=== PATIENT | female | born 1970 | race Hispanic/Latino ===

== ENCOUNTER 2016-10-11 07:09 | Day surgery (SDC) | payer OTHER ==
[~2016-10-11] VITALS: Ht 157.5 cm; Wt 66.0 kg
[~2016-10-11 07:09] MED LIST: 0.9% Sodium Chloride 1,000 ML IV SCH; OMEP20TA24 PO; Sodium Chloride LOK Flush 10 mL Syringe IV PRN; fentaNYL-PF 50 mCg/mL 2 mL Inj IVPUSH PRN
[2016-10-11 07:40] VITALS: BP 104/56; PULSE 65; RESP 14; O2SAT 100
--- NOTE | 2016-10-11 08:16 | PCM.ENDEGD ---
EGD Date of Service: Oct 11, 2016 Physician Jose Kowalski MD Indication for Procedure Reflux Post Procedure Dx & Findings: LA grade D esophagitis Procedure Esophagogastroduodenoscopy PROCEDURE IN DETAIL: The patient was placed in left lateral decubitus position. Bite block was placed. Scope lubricated, placed in posterior pharynx, passed through the cricopharyngeus and esophagus, slowly advanced the entire length of the gastric pouch, pylorus was identified, scope passed through the pylorus and descending portion of duodenum, withdrawn in the antrum, retroflexed upon itself for view of fundus and cardia. Scope was then withdrawn through the oropharynx. Esophagus normal until we got to the Z line which was about 33 cm from the incisors. Inflammation and clean base ulcerations noted. There were 3 ulcerations and the largest one was about 1.5 cm. Several biopsy done using cold forceps. Stomach showed normal mucosa without any ulcers masses erosions. Retroflexion was done. Stomach was easily inflatable and deflated abusing air. Cardia fundus body antrum and pylorus were all visualized. Scope further events the duodenum which showed normal villous structures with normal folds. We advanced to the distal duodenum. Impression LA grade D esophagitis and ulcers Recommendation 1Antireflux diet and lifestyle 2Prilosec 20 mg once a day. She should be on PPI indefinitely. If she does not want to be on PPI indefinitely, she is to see a surgeon for Iesha. I will defer this referral to the primary care physician. 3Return to clinic if Prilosec does not resolved as her symptoms. Presedation Assessment Risks and Benefits Informed consent was obtained from the patient after all risks and benefits including but not limited to drug reaction, infection, pain, bleeding, perforation, as well as alternatives were discussed. Patient monitoring Continuous pulse oximetry, cardiac monitoring, blood pressure monitoring, IV access, and oxygen at 2L per nasal cannula. Periprocedural Fentanyl: Fentanyl 125mcg Incrementally Midazolam: Midazolam 6mg Incrementally Complications There were no periprocedural complications identified. Post Procedure Plan Post Procedure Recommendations 1. Restrict activities today. 2. Resume normal activities in the morning. 3. Resume medications. 4. GERD behavioral modification: - Avoid fatty, acidic, spicy, large meals - Do not lie down after meals - Do not eat or drink anything for at least 2 1/2 hours before going to bed at night - Discontinue tobacco and alcohol - Decrease or avoid caffeine - Avoid chocolate and mints - Decrease weight - Avoid aspirin and non steroidal anti-inflammatory agents (NSAID) such as Aleve, Advil, Mobic, Naproxen, Ibuprofen, etc 5. Add proton pump inhibitor. Take 30 minutes before 1st meal of the day. 6. Patient informed of normal post procedure side effects as bloating, drowsiness, blood streaking in the stool 7. If gastric biopsy reveal H.pylori, continue with appropriate treatment 8. If small bowel biopsy reveals celiac, continue with appropriate treatment 9. Please don't hesitate to call me with any questions Jose Kowalski MD Oct 11, 2016 08:16
--- NOTE | 2016-10-11 08:42 | PCM.ENDCOL ---
Colonoscopy Date of Service: Oct 11, 2016 Physician Jose Kowalski MD Indication for Procedure Blood in the stools Post Procedure Dx & Findings: Polyp hemorrhoids diverticula Procedure Colonoscopy Prep adequate Withdrawal 14 minutes PROCEDURE IN DETAIL: After unremarkable rectal examination this videocolonoscope was inserted into patient's anal canal to sense the cecum. Landmarks were identified including the ileocecal valve and appendiceal orifice. Scope was withdrawn systematically. In the ascending colon there was a 5-6 mm polyp which was removed completely using cold snare. In the descending colon there was a 1 mm polyp which was resected completely using cold forceps. In the sigmoid colon, there were a few less than 1 mm diverticuli. In the rectum retroflexion was done which showed hemorrhoids and anal canal was inspected carefully and the way out and some hemorrhoids noted. The mucosa of the cecum, ascending, transverse, descending, sigmoid, rectal mucosa lined with whitish, pink, smooth, glistening, normal-appearing mucosa, normal fine branching, underlying vascularity, normal haustra. The patient tolerated procedure and was transported to observation area. Impression Polyp 2 status post complete removal Hemorrhoids Few small diverticula Recommendation Repeat colonoscopy 5 years Diverticular diet Presedation Assessment Risks and Benefits Informed consent was obtained from the patient after all risks and benefits including but not limited to drug reaction, infection, pain, bleeding, perforation, as well as alternatives were discussed. Patient monitoring Continuous pulse oximetry, cardiac monitoring, blood pressure monitoring, IV access, and oxygen at 2L per nasal cannula. Periprocedural Midazolam: Midazolam 1mg Incrementally Complications There were no periprocedural complications identified. Post Procedure Plan Post Procedure Recommendations 1. Restrict activities today. 2. Resume normal activities in the morning. 3. Resume medications. 4. Patient informed of normal post procedure side effects as bloating, drowsiness, blood streaking in the stool. 5. average risk CRCS. If colon polyps come back as: -Hyperplastic- can repeat colonoscopy in 10 years -Tubular adenoma- repeat colonoscopy in 5 years -Tubulovillous/villous adenoma- repeat colonoscopy in 3 years -If any dysplasia- return to clinic as soon as possible 6. Please don't hesitate to call me with any questions. Jose Kowalski MD Oct 11, 2016 08:42
[2016-10-11 08:43] VITALS: BP 90/56; PULSE 54; RESP 12; O2SAT 100
[2016-10-11 08:53] VITALS: BP 84/58; PULSE 55; RESP 16; O2SAT 98
[2016-10-11 08:55] VITALS: BP 84/48; PULSE 56; RESP 12; O2SAT 98
[2016-10-11 09:05] VITALS: BP 80/51; PULSE 61; RESP 16; O2SAT 100
[2016-10-11 09:14] VITALS: BP 94/57; PULSE 58; RESP 16; O2SAT 100
--- NOTE | 2016-10-12 16:12 | PATH ---
SURGICAL PATHOLOGY Attending Physician:Jose Kowalski M.D. CASE STATUS: Signed Out PATIENT NAME: AMOS MAE PID: [id number] : 1970 DATE COLLECTED:10/11/2016 16:03 SPECIMEN: 1: Esophagus, Biopsy 2: Colon, Biopsy 3: Colon, Biopsy CLINICAL HISTORY: 1). ESOPHAGEAL ULCER BIOPSY 2). ASCENDING COLON POLYP X1 3). DESCENDING COLON POLYP X1 FINAL DIAGNOSIS: 1. Esophageal Ulcer Biopsy: Intestinal metaplasia consistent with Ontiveros's esophagus, one of two fragments of squamocolumnar mucosa. No ulcer identified. Negative for dysplasia and malignancy. 2. Ascending Colon Polyp x1: Sessile serrated adenoma. 3. Descending Colon Polyp: Benign colonic mucosa with intramucosal lymphoid aggregate. Negative for dysplasia and malignancy. ICD10: K22.70 D12.2 K63.5 GROSS DESCRIPTION: The specimen is received in three formalin filled containers labeled with the patient's name. 1). The specimen is sublabeled "esophageal ulcer" and consists of 2 portions of tissue which aggregate to 0.3 x 0.2 x 0.2 CM. The specimen is entirely submitted in cassette 1A. 2). The specimen is sublabeled "ascending colon polyp" and consists of 3 portions of tissue which aggregate to 0.2 x 0.2 x 0.2 CM. The specimen is entirely submitted in cassette 2A. 3). The specimen is sublabeled "descending colon polyp" and consists of a 0.3 x 0.3 x 0.2 CM portion of tissue which is entirely submitted in cassette 3A. 10/11/2016 DAC MICRO DESCRIPTION: Please see diagnosis. ICD-9 CODES: CPT CODES: 1: 74378 2: 40929 3: 66704 Electronically Signed Out Kelly Marina MD [facility] [address], [place] [address] Technical component performed at [facility], [address], [place], [address]
== END 2016-10-11 23:59 | disposition home or self-care (01) ==
LOC: END 07:09
PROVIDERS: ATTEND Internal Medicine
DX: D12.2 Benign neoplasm of ascending colon (principal); K63.5 Polyp of colon; K64.9 Unspecified hemorrhoids; K57.90 Diverticulosis of intestine, part unspecified, without perforation or abscess without bleeding; K22.10 Ulcer of esophagus without bleeding; K20.9 Esophagitis, unspecified
CPT/HCPCS: 43239; 45380; 45385; 99153; G0500; J2250; J3010; J7030